=== PATIENT | male | born 1960 | race Caucasian/White ===

== ENCOUNTER 2017-12-16 11:35 | Day surgery (SDC) | payer OTHER ==
[2017-12-16] MEDS ORDERED: CEFAZOLIN 2 GM/50 ML (PMX) 50 ML IVPB (12:30)
[2017-12-16] MEDS ORDERED: SOD CHLORIDE 0.9% 1,000 ML IV (12:30)
[2017-12-16 12:44] LABS: INR 0.93; PARTIAL THROMBOPLASTIN TIME 27.2 Sec (23.0-35.0); PROTIME 12.6 Sec (11.9-14.9)
[2017-12-16 12:47] LABS: ALANINE AMINOTRANSFERASE 25 IU/L (13-69); ALBUMIN 3.8 g/dl (3.3-4.9); ALBUMIN/GLOBULIN RATIO 1.05; ALKALINE PHOSPHATASE 80 IU/L (42-121); ANION GAP 9 (5-13); ASPARTATE AMINO TRANSFERASE 29 IU/L (15-46); BILIRUBIN,INDIRECT 0.9 mg/dl (0-1.1); BILIRUBIN,TOTAL 0.9 mg/dl (0.2-1.3); BLOOD UREA NITROGEN 11 mg/dl (7-20); CALCIUM 9.3 mg/dl (8.4-10.2); CARBON DIOXIDE 28 mmol/L (21-31); CHLORIDE 105 mmol/L (97-110); GLUCOSE 94 mg/dl (70-220); SODIUM 142 mmol/L (135-144); TOTAL PROTEIN 7.4 g/dl (6.1-8.1)
[2017-12-16] MEDS ORDERED: POLYMYXIN/BACITRACIN 1L IRRIG (14:44)
[2017-12-16] MEDS ORDERED: CEFAZOLIN 1 GM INJ (14:58)
[2017-12-16] MEDS ORDERED: ROCURONIUM 50 MG INJ (14:58)
[2017-12-16] MEDS ORDERED: GLYCOPYRROLATE 0.4 MG INJ (14:58)
[2017-12-16] MEDS ORDERED: PROPOFOL 20 ML (14:58)
[2017-12-16] MEDS ORDERED: NEOSTIGMINE 3 MG/3 ML SYRINGE (14:58)
[2017-12-16] MEDS ORDERED: FENTAnyl 50 MCG/ML VIAL (14:59)
[2017-12-16] MEDS ORDERED: ONDANSETRON 4 MG INJ (14:59)
[2017-12-16] MEDS ORDERED: DEXAMETHASONE 4 MG/ML 1 ML INJ (14:59)
[2017-12-16] MEDS ORDERED: MIDAZOLAM 1 MG/ML 2 ML INJ (14:59)
[2017-12-16] MEDS ORDERED: ROPIVACAINE 0.5 % 30 ML VIAL (15:05)
[2017-12-16] MEDS: BUPIVACAINE 0.25%/EPI (SDV) 30 ML INJ (15:37)
[2017-12-16] MEDS ORDERED: IBUPROFEN 600 MG TAB PO (16:30)
[2017-12-16] MEDS ORDERED: ONDANSETRON 4 MG INJ IV ×2 (16:30→17:00)
[2017-12-16] MEDS ORDERED: KETOROLAC 30 MG INJ IV (16:30)
[2017-12-16] MEDS ORDERED: HYDROCODONE/APAP (5/325) TAB PO ×2 (16:30)
[2017-12-16] MEDS ORDERED: MIDAZOLAM 1 MG/ML 2 ML INJ IV (17:00)
[2017-12-16] MEDS ORDERED: DIPHENHYDRAMINE 50 MG INJ IV (17:00)
[2017-12-16] MEDS ORDERED: HYDROmorphONE 1 MG/5 ML IV SYRINGE IV ×3 (17:00)
[2017-12-16] MEDS ORDERED: MEPERIDINE 25 MG INJ IV (17:00)
[2017-12-16] MEDS ORDERED: EPHEDrine SULFATE 50 MG/5 ML SYG IV (17:00)
[2017-12-16] MEDS ORDERED: ALBUTEROL 0.083% (NEB) 2.5 MG/3 ML AMP HHN (17:00)
[2017-12-16] MEDS ORDERED: LABETALOL HCL 20MG INJ IV (17:00)
[2017-12-16] MEDS ORDERED: hydrALAzine 20 MG INJ IV (17:00)
[2017-12-16] MEDS ORDERED: OXYCODONE/ACETAMINOPHEN (5/325) TAB PO ×2 (17:00)
[2017-12-16] MEDS ORDERED: TRIMETHOBENZAMIDE 100 MG/ML VIAL IM (17:00)
[2017-12-16] MEDS ORDERED: IPRATROPIUM (NEB) 0.5 MG/2.5 ML AMP HHN (17:00)
[2017-12-16] MEDS ORDERED: FENTAnyl 50 MCG/ML VIAL IV ×3 (17:00)
== END 2017-12-16 18:15 | disposition home or self-care (01) ==
LOC: SDS 11:35
DX: K40.90 Unilateral inguinal hernia, without obstruction or gangrene, not specified as recurrent (principal)
CPT/HCPCS: 49505; 80053; 85610; 85730

== ENCOUNTER 2018-05-16 06:09 | Day surgery (SDC) | payer OTHER ==
[2018-05-16] MEDS: PROPARACAINE 0.5% 15 ML OPH RIGHT EYE (07:16)
[2018-05-16] MEDS ORDERED: OXYCODONE/ACETAMINOPHEN (5/325) TAB PO (07:30)
[2018-05-16] MEDS ORDERED: ALBUTEROL 0.083% (NEB) 2.5 MG/3 ML AMP HHN (07:30)
[2018-05-16] MEDS ORDERED: FENTAnyl 50 MCG/ML VIAL IV (07:30)
[2018-05-16] MEDS ORDERED: DIPHENHYDRAMINE 50 MG INJ IV (07:30)
[2018-05-16] MEDS ORDERED: ONDANSETRON 4 MG INJ IV (07:30)
[2018-05-16] MEDS ORDERED: LABETALOL HCL 20MG INJ IV (07:30)
[2018-05-16] MEDS ORDERED: ACETAMINOPHEN 325 MG TAB PO (07:30)
[2018-05-16] MEDS ORDERED: hydrALAzine 20 MG INJ IV (07:30)
[2018-05-16] MEDS: ACETAMINOPHEN 500 MG TAB PO (07:31)
[2018-05-16] MEDS ORDERED: TOBRAMYCIN/DEXAMETH 2.5 ML OPH (07:41)
[2018-05-16] MEDS ORDERED: LIDOCAINE 2% (SDV) 5 ML INJ (07:49)
[2018-05-16] MEDS ORDERED: PROPOFOL 20 ML (07:49)
[2018-05-16] MEDS ORDERED: MIDAZOLAM 1 MG/ML 2 ML INJ (08:23)
[2018-05-16] MEDS: TETRACAINE 0.5% 4 ML OPH (08:27)
[2018-05-16] MEDS: TOBRAMYCIN/DEXAMETH 3.5 GM OPH OINT (08:27)
[2018-05-16] MEDS: LIDOCAINE 2%/EPI (MDV) 20ML INJ INJ (08:27)
[2018-05-16] MEDS: BUPIVACAINE 0.5% (SDV) 30 ML INJ (08:27)
[2018-05-16] MEDS ORDERED: FENTAnyl 50 MCG/ML VIAL (08:28)
== END 2018-05-16 11:05 | disposition home or self-care (01) ==
LOC: SDS 06:09
DX: H11.001 Unspecified pterygium of right eye (principal); E78.5 Hyperlipidemia, unspecified
CPT/HCPCS: 65426